=== PATIENT | female | born 1960 | race Caucasian/White ===

== ENCOUNTER → 2016-09-23 | Outpatient (CLI) | payer BC ==
[~2016-09-23] MED LIST: CALTRATE PO; CHOL100040 PO; OMEP20CA9 PO
== END | disposition home or self-care (01) ==
LOC: C.LAB1850 10:39
PROVIDERS: ATTEND Internal Medicine Pulmonary Disease
DX: J45.909 Unspecified asthma, uncomplicated (principal)

== ENCOUNTER → 2017-01-04 | Outpatient (CLI) | payer BC ==
--- NOTE | 2017-01-05 15:28 | MAMMOGRAPHY REPORT ---
BILATERAL DIGITAL SCREENING MAMMOGRAM TOMOSYNTHESIS WITH CAD: 01/04/2017 CLINICAL HISTORY: Routine screening. Patient has no complaints. TECHNIQUE: Breast tomosynthesis in addition to standard 2D mammography was performed. Current study was also evaluated with a Computer Aided Detection (CAD) system. COMPARISON: Comparison is made to exams dated: 12/24/2015 mammogram, 12/21/2014 mammogram, 12/19/2013 m ammogram, 12/12/2012 mammogram, 12/03/2011 mammogram, and 11/27/2010 mammogram - [facility] enter. BREAST COMPOSITION: The tissue of both breasts is heterogeneously dense, which may obscure small ma sses. FINDINGS: The parenchymal pattern is similar to prior exams. No developing mass, architectural dis tortion or cluster of suspicious microcalcifications is seen in either breast. IMPRESSION: ACR BI-RADS CATEGORY 2: BENIGN There is no mammographic evidence of malignancy. A 1 year screening mammogram is recommended. The p atient will receive written notification of the results. Approximately 10% of breast cancers are not detected with mammography. A negative mammographic repor t should not delay biopsy if a clinically suggestive mass is present. Celia Murillo M.D. ay/:01/04/2017 22:42:27 Tobacco Buyer: Lyudmila Antoine, [facility] letter sent: Normal 1/2 BI-RADS Code: ACR BI-RADS Category 2: Benign
== END | disposition home or self-care (01) ==
LOC: C.MAMM 09:59
PROVIDERS: ATTEND Obstetrics & Gynecology
DX: Z12.31 Encounter for screening mammogram for malignant neoplasm of breast (principal)

== ENCOUNTER → 2017-02-04 | Outpatient (CLI) | payer BC | END | disposition home or self-care (01) | LOC: C.PAPS 14:29 | PROVIDERS: ATTEND Obstetrics & Gynecology | DX: Z01.419 Encounter for gynecological examination (general) (routine) without abnormal findings (principal); N95.2 Postmenopausal atrophic vaginitis ==

== ENCOUNTER → 2018-01-05 | Outpatient (CLI) | payer OTHER ==
--- NOTE | 2018-01-05 15:30 | MAMMOGRAPHY REPORT ---
BILATERAL DIGITAL SCREENING MAMMOGRAM TOMOSYNTHESIS WITH CAD: 01/05/2018 CLINICAL HISTORY: Routine screening. Patient has no complaints. TECHNIQUE: Breast tomosynthesis in addition to standard 2D mammography was performed. Current study was also evaluated with a Computer Aided Detection (CAD) system. COMPARISON: Comparison is made to exams dated: 01/04/2017 mammogram, 12/24/2015 mammogram, 12/21/2014 m ammogram, 12/19/2013 mammogram, 12/12/2012 mammogram, and 12/03/2011 mammogram - [facility]. BREAST COMPOSITION: The tissue of both breasts is heterogeneously dense, which may obscure small mas ses. FINDINGS: No suspicious masses, calcifications, or areas of architectural distortion are noted in ei ther breast. There has been no significant interval change compared to prior exams. IMPRESSION: ACR BI-RADS CATEGORY 1: NEGATIVE There is no mammographic evidence of malignancy. A 1 year screening mammogram is recommended. The pa tient will receive written notification of the results. Approximately 10% of breast cancers are not detected with mammography. A negative mammographic report should not delay biopsy if a clinically suggestive mass is present. Salome Hutton M.D. ah/:01/05/2018 12:06:40 Rides Attendant: Chrissy Montiel RT(R)(M), [facility] letter sent: Normal 1/2 BI-RADS Code: ACR BI-RADS Category 1: Negative
== END | disposition home or self-care (01) ==
LOC: C.MAMM 10:12
PROVIDERS: ATTEND Obstetrics & Gynecology
DX: Z12.31 Encounter for screening mammogram for malignant neoplasm of breast (principal)

== ENCOUNTER 2019-05-24 05:31 | Inpatient (IN) ==
--- NOTE | 2019-04-28 09:29 | PAT Medication Instructions ---
Medication Instructions Date of Service April 28, 2019 Home Medications Women's Multivitamin 2 tab PO QAM acetaminophen 500 mg PO Q6H NEEDED calcium carbonate-vitamin D3 2 tab PO QAM cetirizine [Zyrtec] 10 mg PO QAM cholecalciferol (vitamin D3) [Vitamin D3] 1,000 unit PO QAM fluticasone propion-salmeterol [Advair Diskus] 1 puff INHALATION BID psyllium husk [Metamucil] 1 tbsp PO BID NEEDED ranitidine HCl 150 mg PO BID DO NOT take the morning of surgery Women's Multivitamin 2 tab PO QAM calcium carbonate-vitamin D3 2 tab PO QAM cetirizine [Zyrtec] 10 mg PO QAM cholecalciferol (vitamin D3) [Vitamin D3] 1,000 unit PO QAM psyllium husk [Metamucil] 1 tbsp PO BID NEEDED Take morning of surgery With a small sip of water, OTHERWISE NOTHING TO EAT OR DRINK AFTER MIDNIGHT: fluticasone propion-salmeterol [Advair Diskus] 1 puff INHALATION BID ranitidine HCl 150 mg PO BID acetaminophen 500 mg PO Q6H NEEDED (if needed; stop 4 hours prior to surgery) Take evening before surgery fluticasone propion-salmeterol [Advair Diskus] 1 puff INHALATION BID ranitidine HCl 150 mg PO BID psyllium husk [Metamucil] 1 tbsp PO BID NEEDED (if needed) acetaminophen 500 mg PO Q6H NEEDED (if needed) Other Notes If you have any questions please call us at [phone] or [phone] or [phone] or [phone]
--- NOTE | 2019-04-28 10:35 | Anesthesiology Consultation ---
Date of Service April 28, 2019 Assessment & Plan (1) Encounter for pre-operative examination: - No previous anesthesia records. Chart Review Chart Review: Acceptable Risk for Surgery and Patient seen in Pre Admission Testing Consults Requested medical (Dr. Tobias (05/09)) Patient was seen by PCPs office on 05/09/19 for preoperative evaluation. Per note from that visit, "Jailene is medically cleared for surgery." Teaching & Discussion Pre-Anesthesia Teaching/Discussion Notes: Instructed NPO after midnight before surgery, except medications with 15 cc of water. Medication instructions provided according to the PAT guidelines. History Surgery Operation Date: 05/24/19 09:10 Proposed Procedures p Left Total Knee Arthroplasty - Giovanny Navarro MD Height/Weight Height: 5 ft 6 in Weight: 62.5 kg Allergies Allergy/AdvReac Type Severity Reaction Status Date / Time procaine [From Novocain] Allergy Verified 05/02/19 08:55 codeine AdvReac Mild HEADACHES Unverified 04/21/19 10:46 Medications Home Medications Medication Instructions Recorded Confirmed Last Taken acetaminophen 500 mg PO Q6H PRN 04/21/19 04/21/19 Unknown calcium carbonate-vitamin D3 2 tab PO QAM 04/21/19 04/21/19 Unknown cetirizine [Zyrtec] 10 mg PO QAM 04/21/19 04/21/19 Unknown cholecalciferol (vitamin D3) 1,000 unit PO QAM 04/21/19 04/21/19 Unknown [Vitamin D3] psyllium husk [Metamucil] 1 tbsp PO BID PRN 04/21/19 04/21/19 Unknown ranitidine HCl 150 mg PO BID 04/21/19 04/21/19 Unknown fluticasone 100 mcg-salmeterol 50 1 puff INHALATION BID #60 ea 05/02/19 Unknown mcg/dose blistr powdr for inhalation Past Medical History Medical History Agoraphobia Allergy-induced asthma Environmental allergies GERD (gastroesophageal reflux disease) Osteoarthritis Seasonal allergies Exercise / Class Metabolic Activity II 4-5 Yardwork/Stairs/Walk up hill (Walks 2-5 miles daily. Able to climb FOS. Denies CP or SOB (now that asthma is being treated).) Past Family History Family History Sister Family history of diabetes mellitus FHx: uterine cancer Mother FHx: uterine cancer Family history of diabetes mellitus Father Emphysema, unspecified Brother Allergic rhinitis Past Surgical History Surgical History H/O arthroscopic knee surgery H/O breast biopsy H/O wrist surgery History of lumpectomy of left breast History of open reduction and internal fixation (ORIF) procedure LEFT WRIST History of repair of anterior cruciate ligament of left knee History of surgical removal of ganglion cyst LEFT Hx of cholecystectomy Past Anesthesia History No Hx of Anesthesia Complications and No Family Hx of Anesthesia Complications History of PONV No Hx of PONV and No Hx of Motion Sickness Social History Smoking Status: Former smoker Smoking cigarettes per day: 1 pack per week x 10-15 years Do You Dip or Chew Tobacco: No Smoking End Date: 27 YR AGO Hx Alcohol Use: Yes Alcohol type: hard liquor alcohol intake frequency: a few times a month Hx Substance Use: No Review of Systems Patient denies chest pain, shortness of breath, dyspnea on exertion, cough, palpitations. +Joint Pain (Knee, right Hip) +Acid Reflux (controlled with diet and current medications) +wheezing (resolved since starting on asthma medications) Physical Exam Vital Signs BP: 96/67 P: 74 R: 16 T: 98.4 SPO2: 99% on RA ENMT Thyromental Distance: > or= 3.5 Finger Breadths (3.5) Mallampati Class: II Neck normal visual inspection; neck extension not limited Respiratory normal respiratory effort Auscultation: lungs clear to auscultation bilaterally Cardiovascular Rate/Rhythm: regular rate and regular rhythm Heart Sounds: no murmur Vessels: no carotid bruit Neurologic moves all extremities Psychiatric Orientation: alert and oriented x 3 Testing Laboratory Results 04/28/19 11:04 04/28/19 11:04 PT 9.9 Seconds (9.0-12.0) 04/28/19 11:04 INR 1.0 (0.9-1.1) 04/28/19 11:04 APTT 26.1 Seconds (21.0-31.0) 04/28/19 11:04 Hemoglobin A1c 5.2 % (4.5-5.6) 04/28/19 11:04 Urine Color Yellow 04/28/19 Unknown Urine Appearance Clear (Clear) 04/28/19 Unknown Urine pH 5.0 (4.5-7.5) 04/28/19 Unknown Ur Specific [place]sgood 1.018 (1.000-1.030) 04/28/19 Unknown Urine Protein Negative (Negative) 04/28/19 Unknown Urine Glucose (UA) Negative (Negative) 04/28/19 Unknown Urine Ketones Negative (Negative) 04/28/19 Unknown Urine Nitrite Negative (Negative) 04/28/19 Unknown Ur Leukocyte Esterase Negative (Negative) 04/28/19 Unknown Blood Type A Positive 04/28/19 11:04 Antibody Screen NEGATIVE 04/28/19 11:04 Electrocardiogram Date: 04/28/19 Findings: + NSR @ (71) and + no change from (12/31/14) Chest X-Ray Date: 04/28/19 Findings: + NAD Stress Test Date: 06/12/16 Type: exercise Resting EF: 60% Resting RWMA: + none No ischemic ST/T wave changes with exercise Occasional PVCs Negative exercise ECG for ischemia Negative stress EKG for ischemia at 102% MPHR Well above average exercise tolerance for age and gender, 181% of predicted, achieving 13 METs.
--- NOTE | 2019-04-28 11:43 | XRay Report ---
XR chest Pre-admission PA/Lat HISTORY: Preop. COMPARISON: Chest 07/16/2017. FINDINGS: The lungs remain mildly hyperexpanded. No focal lung consolidations. No evidence for pulmon rafita edema. The heart is normal in size. No pleural effusions. No pneumothorax. Prior cholecystectomy. IMPRESSION: No acute process. Electronically signed by: Cresencio Garza M.D. 04/28/2019 11:41 AM
[2019-04-28 12:05] LABS: Basophils # (auto) 0.04 K/uL (0-0.2); Basophils % (auto) 0.8 %; Eosinophils # (auto) 0.08 K/uL (0-0.5); Eosinophils % (auto) 1.7 %; Immature Granulocytes # (auto) 0.01 K/uL (0.00-0.02); Immature Granulocytes % (auto) 0.2 %; Lymphocytes # (auto) 1.34 K/uL (1.2-3.4); Lymphocytes % (auto) 28.1 %; Mean Corpuscular Hemoglobin 33.2 pg (25-34); Mean Corpuscular Hgb Conc 35.1 g/dL (32-36); Mean Corpuscular Volume 94.4 fL (80-100); Mean Platelet Volume 9.2 fL (7.4-10.4); Monocytes # (auto) 0.33 K/uL (0.11-0.59); Monocytes % (auto) 6.9 %; Neutrophils # (auto) 2.97 K/uL (1.4-6.5); Neutrophils % (auto) 62.3 %; Platelet Count 208 K/uL (130-400); RDW Coefficient of Variation 13.6 % (11.5-14.5); RDW Standard Deviation 46.5 fL (36.4-46.3); Red Blood Count 3.92 M/uL (4.2-5.4); White Blood Count 4.77 K/uL (4.8-10.8)
[2019-04-28 12:07] LABS: Appearance Urine Clear (Clear); Bilirubin Urine Negative (Negative); Blood Urine Negative (Negative); Color Urine Yellow; Glucose Urine UA Negative (Negative); Ketones Urine Negative (Negative); Leukocyte Esterase Urine Negative (Negative); Nitrite Urine Negative (Negative); Protein Urine Negative (Negative); Specific Gravity Urine 1.018 (1.000-1.030); Urobilinogen Urine Negative (Negative)
[2019-04-28 12:12] LABS: Albumin Level 3.8 gm/dl (3.4-5.0); BUN Creatinine Ratio 27.6 (10-20); Calcium 9.1 mg/dl (8.5-10.1); Creatinine Clr Calc Pharmacy 92.2 ml/min; Est GFR (Non-African American) 98.4; Potassium 3.8 mmol/L (3.5-5.1)
[2019-04-28 12:16] LABS: Partial Thromboplastin Time 26.1 Seconds (21.0-31.0); Prothrombin Time 9.9 Seconds (9.0-12.0)
[2019-04-28 12:39] LABS: Estimated Average Glucose 103 mg/dl; Hemoglobin A1C 5.2 % (4.5-5.6)
--- NOTE | 2019-05-23 13:20 | History and Physical Report ---
DATE OF ADMISSION: 05/24/2019 CHIEF COMPLAINT: Chronic left knee pain. HISTORY OF PRESENT ILLNESS: This is a 59-year-old female patient of Dr. Montalvo, complaining of chronic left knee pain, longstanding, now progressively getting worse. The patient has failed conservative treatment including anti-inflammatories and the use of a brace. The patient has been diagnosed with end-stage osteoarthritis per clinical and radiographic exams. The patient has increased pain with weightbearing activities and her pain does interfere with her activities of daily living. PAST MEDICAL HISTORY: Asthma, acid reflux. SOCIAL HISTORY: Nonsmoker, nondrinker. PAST SURGICAL HISTORY: ACL replacement, wrist surgery, lumpectomy and left wrist cyst removal. FAMILY HISTORY: Noncontributory. REVIEW OF SYSTEMS: Chronic left knee pain, otherwise denies any shortness of breath, chest pain, nausea, vomiting or any other joint complaints. MEDICATIONS: 1. Advair Diskus 100 mcg/50 mcg dose, 1 puff twice daily 12 hours apart. 2. Zyrtec 10 mg daily. 3. Vitamin D3 1000 units daily. 4. Calcium 500 daily. 5. Multivitamin daily. 6. Ranitidine 150 mg 1 tablet twice daily. 7. Metamucil 0.52 g capsule daily. 8. Extra-Strength Tylenol as needed. 9. Advil Cold and Sinus 30/200 as needed. ALLERGIES: INCLUDE NOVOCAIN. PHYSICAL EXAMINATION: GENERAL: A well-developed, well-nourished 59-year-old female in no acute distress. She is alert and oriented x3 and pleasant. HEENT: Normocephalic, atraumatic. Extraocular motions are intact. Pupils are equal and reactive to light. HEART: Regular rate and rhythm, no murmurs. LUNGS: Clear. ABDOMEN: Soft, nontender, bowel sounds present. EXTREMITIES: Left knee limited range of motion of 0-115 degrees. Neutral alignment, 5/5 strength. Positive mild effusion. NEUROLOGIC: Neurovascularly intact in her left lower extremity. DIAGNOSES: Left knee end-stage osteoarthritis, asthma, acid reflux. PLAN: The patient was advised of her diagnosis. Indications, risks, benefits, and postop course have all been reviewed. The patient wished to proceed with a left total knee arthroplasty. Necessary consent forms, preoperative testing and clearances will be obtained. NIC
[2019-05-24] MEDS ORDERED: LR 500ML BOLUS, THEN 15ML/HR IV SCH (06:00)
[2019-05-24] MEDS ORDERED: dexAMETHasone 4 MG TAB PO SCH (06:00)
[2019-05-24] MEDS ORDERED: ROPIVACAINE 0.5% HCL/PF 150 MG, BUPIVACAINE 0.5% MPF 30 ML, EPINEPHrine 30MG/30ML (OR U... INSTIL SCH (06:00)
[2019-05-24] MEDS ORDERED: GABAPENTIN 600 MG DOSE PO SCH (06:00)
[2019-05-24] MEDS ORDERED: METOCLOPRAMIDE HCL 10 MG TABLET PO SCH (06:00)
[2019-05-24] MEDS ORDERED: CEFAZOLIN 1000MG 1,000 MG/7.5 ML SYR IV SCH (06:00)
[2019-05-24] MEDS ORDERED: ACETAMINOPHEN 500 MG TAB PO SCH (06:00)
[2019-05-24] MEDS ORDERED: FAMOTIDINE 20 MG TAB PO SCH (06:00)
[2019-05-24] MEDS ORDERED: TRANEXAMIC ACID 1,000 MG **IV Pre-op IV SCH (06:00)
[2019-05-24] MEDS ORDERED: CeleBREX 200 MG CAP PO SCH (06:00)
[2019-05-24] MEDS ORDERED: MIDAZOLAM HCL 1 MG/ML 2ML VIAL ONE (06:23)
[2019-05-24] MEDS ORDERED: fentaNYL citrate 100 MCG/2 ML VIAL ONE (06:23)
[2019-05-24] MEDS ORDERED: ROPIVACAINE 0.5% 5 MG/ML 30 ML VIAL ONE (06:25)
[2019-05-24] MEDS ORDERED: BUPIVACAINE 0.5 % 5 MG/1 ML PF 10ML VIAL ONE (06:25)
[2019-05-24] MEDS ORDERED: ATROPINE SULFATE 0.1 MG/ML 10ML SYR IV PRN (06:27)
[2019-05-24] MEDS ORDERED: fentaNYL citrate 100 MCG/2 ML VIAL IV PRN (06:27)
[2019-05-24] MEDS ORDERED: ONDANSETRON INJ 2 MG/ML 2 ML VIAL IV PRN ×2 (06:27→10:57)
[2019-05-24] MEDS ORDERED: ePHEDrine sulfate 50 MG/ML AMP IV PRN (06:27)
[2019-05-24] MEDS ORDERED: TRANEXAMIC ACID 1,000 MG **IV Intra-op IV SCH (06:30)
[2019-05-24] MEDS ORDERED: BACITRACIN INJ 50,000 UNIT VIAL ONE (06:41)
[2019-05-24] MEDS ORDERED: ORTHO JOINT ANESTHETIC ONE (06:41)
--- NOTE | 2019-05-24 06:57 | History & Physical Bridge Note ---
Date of Service May 24, 2019 History & Physical Bridge Note I have examined the patient, reviewed the History & Physical and in the interval since the performance of the History & Physical I have noted the following changes of clinical significance: no changes noted
[2019-05-24] MEDS ORDERED: PROPOFOL IV EMULSION 10 MG/ML 20 ML VIAL IV ONE ×2 (07:47→08:39)
[2019-05-24] MEDS ORDERED: PHENYLEPHRINE HCL 10 MG/ML VIAL ONE (07:48)
--- NOTE | 2019-05-24 09:26 | Post Operative Brief Note ---
Immediate Post Op Note v1 Date of Surgery May 24, 2019 Pre & Post Diagnosis Operation Date: 05/24/19 07:00 Pre-Op Diagnosis: Unilateral Primary Osteoarthritis, Left Knee, history of prior ACL reconstruction with retained hardware Post-Op Diagnosis: Unilateral Primary Osteoarthritis, Left Knee, history of prior ACL reconstruction with retained hardware Procedure Operation Date: 05/24/19 07:00 Actual Procedures p Left Total Knee Arthroplasty(Left) removal deep hardware lateral release patella- Giovanny Navarro MD Surgeon Giovanny Navarro MD Thermostat Machine Tender Emiliano LOGAN Estimated Blood Loss 5 Findings Consistent with Post-Op Diagnosis Specimens Bone cuts Drains Hemovac Drain Anesthesia Type MAC Spinal Regional Complications none Disposition Accompanied Patient To Recovery: No Disposition: Recovery Room Overlapping Procedure I was present for: the critical portions of procedure.
--- NOTE | 2019-05-24 10:13 | XRay Report ---
XR knee LT 2V routine CLINICAL HISTORY: post op LEft TKA COMPARISON: None. DISCUSSION: Anatomic alignment posttotal left knee arthroplasty. Screws are present within the distal femoral shaft and proximal tibial shaft. Expected soft tissue po stoperative change IMPRESSION: Anatomic alignment posttotal left knee arthroplasty. The above report was generated using voice recognition software. It may contain grammatical, syntax or spelling errors. Electronically signed by: Emiliano Pineda M.D. 05/24/2019 10:12 AM
--- NOTE | 2019-05-24 10:14 | Anesthesiology Progress Note ---
Date of Service May 24, 2019 Anesthesia Post Procedure Vital Signs Vital Signs: Temp Pulse Pulse Resp BP Pulse Ox 05/24/19 10:05 98.1 F 81 21 116/67 99 05/24/19 09:55 97.3 F L 73 18 114/71 100 05/24/19 09:45 97.3 F L 77 18 116/67 100 05/24/19 09:39 97.3 F L 75 14 111/61 100 05/24/19 06:11 98.2 F 64 16 114/68 100 Transfer of Care Handoff Completed per policy Notes Mental Status: alert / awake / arousable and participated in evaluation Patient Amnestic to Procedure: Yes Nausea / Vomiting: adequately controlled Pain: adequately controlled Airway Patency, RR, SpO2: stable & adequate BP & HR: stable & adequate Hydration State: stable & adequate Neuraxial Anesthesia: was administered and sensory block is resolving Anesthetic Complications: no major complications apparent and Pt Satisfied with anesthetic care
[2019-05-24] MEDS ORDERED: PSYLLIUM 58.6% POWDER PACKET PO PRN (10:57)
[2019-05-24] MEDS ORDERED: BISACODYL 10 MG SUPP PR PRN (10:57)
[2019-05-24] MEDS ORDERED: OXYCODONE HCL IR 5 MG TAB (IMMEDIATE RELEASE) PO PRN (10:57)
[2019-05-24] MEDS ORDERED: HYDROmorphone INJ 0.5 MG/0.5 ML SYR IV PRN (10:57)
[2019-05-24] MEDS ORDERED: NALOXONE HCL 0.4 MG/1 ML VIAL/CARP IV PRN (10:57)
[2019-05-24] MEDS ORDERED: MAGNESIUM HYDROXIDE SUSP 30 ML UDC PO PRN (10:57)
[2019-05-24] MEDS: ACETAMINOPHEN 500 MG TAB PO SCH ×2 (13:42→20:55)
[2019-05-24] MEDS: SODIUM CHLORIDE 0.9% 1000ML 1,000 ML IV SCH ×2 (13:54→20:38)
[2019-05-24] MEDS: CEFAZOLIN 1000MG 1,000 MG/7.5 ML SYR IV SCH ×2 (13:55→22:27)
[2019-05-24] MEDS ORDERED: ALBUTEROL HFA 8 GM INHALER INH PRN (17:54)
--- NOTE | 2019-05-24 17:56 | Hospitalist Consultation ---
Date of Consultation May 24, 2019 Assessment & Plan (1) S/P total knee arthroplasty: - S/p left TKA today, doing well. - Pain management per primary team. - ASA 81 mg BID for DVT ppx. - PT/OT for discharge planning. - Monitor CBC for acute blood loss. (2) Anxiety: - Now resolved; pt. reports anxiety was work related. (3) Asthma: - Continue home Advair; Albuterol prn. (4) Allergic rhinitis due to pollen: - Continue Flonase and Zyrtec. (5) GERD (gastroesophageal reflux disease): - Zantac BID. (6) Vitamin D deficiency: - Continue Vit D replacement. (7) DVT prophylaxis: - ASA 81 mg BID. Dispo: Pt. is medically stable, will sign off. Please call with any questions. Supervising Physician Co-Signing Physician Notes PA Supervision Note: I did not personally see or examine the patient today, but I verified all ayon points of DESMOND Trevino's assessment and plan with the following exceptions/additions: None History of Present Illness Reason for Consultation: Medical Management Attending Physician: Giovanny Navarro MD History of Present Illness Mrs. Lopez is a 59 year old female with past medical history of anxiety, GERD, vit D deficiency, allergic rhinitis, asthma who presented for a planned left TKA. She is doing well post op, denies chest pain, SOB, N/V, abd pain. Allergies Allergy/AdvReac Type Severity Reaction Status Date / Time codeine AdvReac Mild HEADACHES Verified 05/24/19 05:44 Home Medications Home Medications Medication Instructions Recorded Confirmed Type acetaminophen 500 mg PO Q6H PRN 04/21/19 05/24/19 History calcium carbonate-vitamin D3 2 tab PO QAM 04/21/19 05/24/19 History cetirizine [Zyrtec] 10 mg PO QAM 04/21/19 05/24/19 History cholecalciferol (vitamin D3) 1,000 unit PO QAM 04/21/19 05/24/19 History [Vitamin D3] psyllium husk [Metamucil] 1 tbsp PO BID PRN 04/21/19 05/24/19 History ranitidine HCl 150 mg PO BID 04/21/19 05/24/19 History fluticasone 100 mcg-salmeterol 50 1 puff INHALATION BID #60 ea 05/02/19 05/24/19 Rx mcg/dose blistr kathy for inhalation Patient History Medical History Agoraphobia Allergy-induced asthma Environmental allergies GERD (gastroesophageal reflux disease) Osteoarthritis Seasonal allergies Surgical History History of lumpectomy of left breast History of open reduction and internal fixation (ORIF) procedure LEFT WRIST History of repair of anterior cruciate ligament of left knee History of surgical removal of ganglion cyst LEFT Hx of cholecystectomy H/O arthroscopic knee surgery H/O breast biopsy H/O wrist surgery Family History Sister Family history of diabetes mellitus FHx: uterine cancer Mother FHx: uterine cancer Family history of diabetes mellitus Father Emphysema, unspecified Brother Allergic rhinitis Social History Preferred Language: Luxembourgish Communication Ability: Effective Beliefs That Will Affect Care: None Current Living Situation: Spouse Feels Safe at Home: Yes Smoking Status: Former smoker Cigarettes Per Day: 1 pack per week x 10-15 years ; Do You Dip or Chew Tobacco: No ; Smoking End Date: 27 YR AGO ; Second Hand Exposure: No ; Hx Alcohol Use: Yes Alcohol type: hard liquor Hx Substance Use: No Review of Systems Review of Systems: All systems reviewed & are unremarkable except as noted in HPI & below Constitutional: no fever, no chills, no fatigue and no weakness Respiratory: no cough, no dyspnea, no dyspnea on exertion and no wheezing Cardiovascular: no chest pain, no palpitations and no edema Gastrointestinal: no abdominal pain, no nausea, no vomiting, no constipation and no diarrhea/loose stools Genitourinary: no difficulty urinating Musculoskeletal: no back pain and no joint pain Integumentary: no non-healing lesions Physical Exam Physical Exam: General: Resting comfortably HEENT: NC/AT; PERRLA with EOMI; Matheny conjunctiva, MMM. No erythema of posterior pharynx Neck: Supple and nontender Cardiac: RRR Lungs: CTA bilaterally Abdomen: Bowel normoactive X 4; Nontender to palpation Extremities: Warm. No edema present. Dressing in place on LLE. Neuro: No focal weakness Skin: No rash Results & Data Vital Signs (Past 12 Hours) Vital Signs Temp Pulse Pulse Resp BP Pulse Ox 05/24/19 16:47 36.7 C 88 18 112/72 97 05/24/19 14:03 36.8 C 80 18 L 18 121/72 98 05/24/19 12:45 36.3 C L 84 18 119/76 97 05/24/19 11:47 36.8 C 84 18 120/72 96 05/24/19 11:10 37 C 81 14 120/74 98 05/24/19 10:40 36.8 C 79 18 113/80 98 05/24/19 10:25 36.4 C L 74 18 117/68 99 05/24/19 10:15 36.4 C L 87 24 122/89 100 05/24/19 10:05 36.7 C 81 21 116/67 99 05/24/19 09:55 36.3 C L 73 18 114/71 100 05/24/19 09:45 36.3 C L 77 18 116/67 100 05/24/19 09:39 36.3 C L 75 14 111/61 100 05/24/19 06:11 36.8 C 64 16 114/68 100 PG Care Time/CCT Total # of Minutes Spent Total Time Spent with Patient: Total time spent is greater than 50% in coordination of care (as documented) at patient's floor/unit and/or counseling patient:
--- NOTE | 2019-05-24 19:26 | Operative Report ---
Post Operative Report Pre & Post Diagnosis Operation Date: 05/24/19 07:00 Pre-Op Diagnosis: Unilateral Primary Osteoarthritis, Left Knee, history ACL reconstruction with failed ACL reconstruction Post-Op Diagnosis: Unilateral Primary Osteoarthritis, Left Knee, history ACL reconstruction with failed ACL reconstruction Procedure Operation Date: 05/24/19 07:00 Actual Procedures p Left Total Knee Arthroplasty(Left) removal interference screw hardware deep left tibia- Giovanny Navarro MD Surgeon Giovanny Navarro MD Document Control Assistant Emiliano LOGAN Estimated Blood Loss 5 Findings Consistent with Post-Op Diagnosis Specimens Screw, bone cuts Drains 2 Hemovac Anesthesia Type MAC Spinal Regional Complications None Disposition Accompanied Patient To Recovery: No Disposition: Recovery Room Indications 59-year-old female with progressive osteoarthritis and stability of left knee radiographs demonstrate interference screws from previous ACL reconstruction with pack of fixation with another tibial screw left lower extremity. She is a varus knees [id number] medial compartment. Clinically she is unstable. Description of Procedure Patient taken to the operating room placed supine on the operating table and anesthetized under spinal MAC regional anesthesia. Exam under anesthesia demonstrated 2+ pivot shift positive Shanna exam no endpoint varus knee tight medial compartment good range of motion. A pneumatic tourniquet was placed about the thigh of the left lower extremity. The left lower extremity was prepped and draped in usual fashion. Leg was elevated exsanguinated with an Esmarch bandage and the pneumatic was raised to 300 mm mercury. An anterior incision was made across the left knee. The skin was incised longitudinally slightly longer than typical due to requirement of removing the screw distal medial tibia. Attention was first taken to removing the interference screw. The back-up screw fixation was lower than the total knee implant and I left it in place in order not to cause a stress riser. There is sutures from that screw going toward the interference screw was but this was completely buried in bone as bone had overgrown the screw completely. I was able to follow the sutures and to wear the interference screw would be and used a small osteotome to remove the superficial bone to be saw the metal and then chipped around the screw with the small curved osteotome until we could place a screwdriver within the screw and remove it uneventfully. Subcutaneous flaps were elevated and an incision was made through the medial retinaculum extending up into the mid third of the quadriceps tendon and extended down to the medial tibial tubercle. Intra- articular findings demonstrated [id number] medial compartment failed ACL graft with absent graft. Some tricompartmental osteoarthritis. The knee was exposed by excising the infrapatellar fat pad, excising the meniscal remnants and posterior cruciate ligament. Any inflamed synovial tissue was resected. The fat pad over the anterior femur was resected for placement of the component in that area. The lateral synovial bands were release. Appropriate releases were performed to balance ligaments. On the medial side this required a medial posterior medial release and pie crusting MCL to get balance flexion extension gaps. The femur was exposed. The femoral sizing guide was placed and the femur was sized for an 8 narrow. The intramedullary guidewire was placed and distal femoral cutting block was applied. Standard distal femoral cut was made at 5 degrees valgus. The distal femoral cut was made with the oscillating saw. The size 8 4-in-1 cutting block was placed. The anterior and posterior chamfer cuts were made. The knee was extended and a subperiosteal peel lateral release was performed around the patella. The patella width was measured and width was reproduced using freehand cut technique. The 35 x 9 millimeter symmetrical patella was used. 3 drill holes are made for the pegs. The tibia was exposed. A an external tibial cutting guide was positioned and pinned in position. the proximal cut was made with the oscillating saw. All osteophytes were resected. The lamina forest patrolman was used to assess ligamentous balance and the ligaments were balanced in extension and flexion. The tibia was reexposed and measured for a size E tibial component. This was externally rotated in line with the tibial tubercle and the fixation pins were drilled. The proximal tibia was fashioned with the drill and punch. The size 8 CR femoral trial was inserted. The trial MC inserts were used. The 12 mm MC insert gave balanced ligaments through full range of motion. The patella tracked slightly laterally so a lateral release was performed and the patella tracked centrally. the trials were removed. The orthomix anesthetic cocktail was injected per protocol. The knee was then copiously irrigated with pulsatile lavage antibiotic solution with bacitracin. The final components were cemented with Simplex cement. The final components were [employer] persona CR left size 8 narrow femur, E tibia, 12 mm MC polyethylene and 35 x 9 mm symmetrical patella. While the cement cured with the knee in full extension the Betadine soak was used per protocol. After the cement cured, the knee joint was copiously irrigated with antibiotic solution with bacitracin. 2 drains were brought out laterally and connected to a Hemovac. The quadriceps tendon and medial retinaculum were closed with interrupted [id number] #1 Vicryl sutures. The knee was taken through a full range of motion and repair was secure. The subcutaneous tissues were closed with 2-0 Vicryl sutures and skin was closed with dar. Sterile dressings were applied and the patient tolerated the procedure well. Emiliano LOGAN my physician hearing aid assistant, assisted in soft tissue retraction instrument management leg positioning the closure and will participate in the postoperative care of the patient. I attest to the content of the Intraoperative Record and any orders documented therein. Any exceptions are noted below.
[2019-05-24] MEDS: DOCUSATE SODIUM 100 MG CAP PO SCH (20:54)
[2019-05-24] MEDS: FLUTICASONE/SALMETEROL 100/50 (ADVAIR) 14 PUFF/1 INHALER INH SCH (20:54)
[2019-05-24] MEDS: CeleBREX 200 MG CAP PO SCH (20:54)
[2019-05-24] MEDS: SENNA 8.6 MG TAB PO SCH (20:54)
[2019-05-24] MEDS: ASPIRIN 81 MG ECTAB PO SCH (20:55)
[2019-05-25] MEDS: ACETAMINOPHEN 500 MG TAB PO SCH ×3 (05:42→19:58)
[2019-05-25] MEDS: FLUTICASONE/SALMETEROL 100/50 (ADVAIR) 14 PUFF/1 INHALER INH SCH ×2 (05:49→19:55)
[2019-05-25 06:42] LABS: Hematocrit (blood only) 34.1 % (37-47); Hemoglobin 11.3 g/dL (12.0-16.0); Mean Corpuscular Hemoglobin 31.7 pg (25-34); Mean Corpuscular Hgb Conc 33.1 g/dL (32-36); Mean Corpuscular Volume 95.5 fL (80-100); Mean Platelet Volume 9.1 fL (7.4-10.4); Platelet Count 248 K/uL (130-400); RDW Coefficient of Variation 13.4 % (11.5-14.5); RDW Standard Deviation 46.5 fL (36.4-46.3); Red Blood Count 3.57 M/uL (4.2-5.4); White Blood Count 14.59 K/uL (4.8-10.8)
[2019-05-25 07:14] LABS: BUN Creatinine Ratio 20.1 (10-20); Calcium 8.7 mg/dl (8.5-10.1); Creatinine Clr Calc Pharmacy 68.3 ml/min; Est GFR (African American) 90.9; Est GFR (Non-African American) 78.4
[2019-05-25] MEDS: CHOLECALCIFEROL 1,000 UNITS TAB PO SCH (07:29)
[2019-05-25] MEDS: CALCIUM 600MG + VIT D 400 IU TAB PO SCH (07:29)
[2019-05-25] MEDS: CeleBREX 200 MG CAP PO SCH ×2 (07:29→19:59)
[2019-05-25] MEDS: CETIRIZINE HCL 10 MG TABLET PO SCH (07:29)
[2019-05-25] MEDS: DOCUSATE SODIUM 100 MG CAP PO SCH ×2 (07:29→19:59)
[2019-05-25] MEDS: MULTIVITAMIN TAB PO SCH (07:29)
--- NOTE | 2019-05-25 08:22 | Anesthesiology Progress Note ---
Date of Service May 25, 2019 Anesthesia Post Procedure Vital Signs Vital Signs: Temp Pulse Pulse Pulse Resp BP Pulse Ox 05/25/19 07:13 36.7 C 74 16 106/58 L 99 05/25/19 03:40 37.0 C 69 16 96/60 L 97 05/24/19 23:55 36.8 C 68 16 99/62 L 97 05/24/19 20:29 36.7 C 81 18 105/69 95 05/24/19 16:47 36.7 C 88 18 112/72 97 05/24/19 14:03 36.8 C 80 18 L 18 121/72 98 05/24/19 12:45 36.3 C L 84 18 119/76 97 05/24/19 11:47 36.8 C 84 18 120/72 96 05/24/19 11:10 37 C 81 14 120/74 98 05/24/19 10:40 36.8 C 79 18 113/80 98 05/24/19 10:25 36.4 C L 74 18 117/68 99 05/24/19 10:15 36.4 C L 87 24 122/89 100 05/24/19 10:05 36.7 C 81 21 116/67 99 05/24/19 09:55 36.3 C L 73 18 114/71 100 05/24/19 09:45 36.3 C L 77 18 116/67 100 05/24/19 09:39 36.3 C L 75 14 111/61 100 Notes Mental Status: alert / awake / arousable and participated in evaluation Nausea / Vomiting: adequately controlled Pain: adequately controlled Airway Patency, RR, SpO2: stable & adequate BP & HR: stable & adequate Hydration State: stable & adequate
[2019-05-25] MEDS: ASPIRIN 81 MG ECTAB PO SCH ×2 (09:10→19:59)
--- NOTE | 2019-05-25 10:46 | Orthopedic Progress Note ---
Date of Service May 25, 2019 Assessment & Plan (1) S/P total knee arthroplasty: POD #1, Left TKA PT/ OT DVT proph- ASA D/C planning- Home w OPPT Appreciate medicine input. Subjective POD #1, Doing well. Denies SOB, CP, N/V. Pain controlled well. Physical Exam Physical Exam: Left knee dressing c/d/i, no drainage. Drain in tact. Toes/ ankle mobile. No calf tenderness. A&Ox3, N/V+. Results & Data Vital Signs (Past 12 Hours) Vital Signs Temp Pulse Resp BP Pulse Ox 05/25/19 07:13 36.7 C 74 16 106/58 L 99 05/25/19 03:40 37.0 C 69 16 96/60 L 97 05/24/19 23:55 36.8 C 68 16 99/62 L 97
[2019-05-25] MEDS: SENNA 8.6 MG TAB PO SCH (19:59)
[2019-05-26] MEDS: ACETAMINOPHEN 500 MG TAB PO SCH (05:23)
[2019-05-26] MEDS: FLUTICASONE/SALMETEROL 100/50 (ADVAIR) 14 PUFF/1 INHALER INH SCH (05:40)
[2019-05-26 05:43] LABS: Hematocrit (blood only) 28.3 % (37-47); Hemoglobin 9.6 g/dL (12.0-16.0); Mean Corpuscular Hemoglobin 32.8 pg (25-34); Mean Corpuscular Hgb Conc 33.9 g/dL (32-36); Mean Corpuscular Volume 96.6 fL (80-100); Platelet Count 179 K/uL (130-400); RDW Coefficient of Variation 13.8 % (11.5-14.5); Red Blood Count 2.93 M/uL (4.2-5.4); White Blood Count 8.54 K/uL (4.8-10.8)
[2019-05-26 06:12] LABS: BUN Creatinine Ratio 25.2 (10-20); Calcium 8.6 mg/dl (8.5-10.1); Creatinine Clr Calc Pharmacy 76.8 ml/min; Est GFR (African American) 104.8; Est GFR (Non-African American) 90.4; Potassium 4.1 mmol/L (3.5-5.1)
--- NOTE | 2019-05-26 08:32 | Orthopedic Progress Note ---
Date of Service May 26, 2019 Assessment & Plan (1) S/P total knee arthroplasty: POD #2, Left TKA PT/ OT DVT proph- ASA D/C planning- Home w OPPT today Appreciate medicine input. Subjective POD #2, Doing well. Denies SOB, CP, N/V. Pain controlled well. Physical Exam Physical Exam: Left knee silverlon c/d/i, no drainage. Toes/ ankle mobile. No calf tenderness. A&Ox3. Results & Data Vital Signs (Past 12 Hours) Vital Signs Temp Pulse Resp BP Pulse Ox 05/26/19 08:23 110/68 05/26/19 08:19 36.7 C 85 18 85/53 L 99 05/26/19 00:20 36.5 C 78 16 110/66 97
[2019-05-26] MEDS: CeleBREX 200 MG CAP PO SCH (09:05)
[2019-05-26] MEDS: ASPIRIN 81 MG ECTAB PO SCH (09:06)
[2019-05-26] MEDS: CETIRIZINE HCL 10 MG TABLET PO SCH (09:06)
[2019-05-26] MEDS: DOCUSATE SODIUM 100 MG CAP PO SCH (09:07)
[2019-05-26] MEDS: MULTIVITAMIN TAB PO SCH (09:07)
[2019-05-26] MEDS: CHOLECALCIFEROL 1,000 UNITS TAB PO SCH (09:07)
[2019-05-26] MEDS: CALCIUM 600MG + VIT D 400 IU TAB PO SCH (09:07)
--- NOTE | 2019-06-03 01:44 | Discharge Summary ---
HISTORY OF PRESENT ILLNESS: This is a 59-year-old female patient of Dr. Navarro'lori complaining of chronic left knee pain, longstanding, now progressively getting worse. The patient was diagnosed with end-stage osteoarthritis per clinical and radiographic examinations. She wished to proceed with a left total knee arthroplasty. PAST MEDICAL HISTORY: Significant for asthma and acid reflux. POSTOPERATIVE COURSE: The patient underwent a left total knee arthroplasty on 05/24/2019. She was followed closely with physical therapy, medical consultation, deep venous thrombosis prophylaxis in the form of aspirin and pain control. The patient did very well postoperatively and was discharged home on postoperative day #2 with no hospital issues. PHYSICAL EXAMINATION: On discharge, left knee Silverlon dressing was clean, dry and intact. There was no redness or drainage. She had no calf tenderness. Negative Homans sign. Toes and ankle were mobile. She was ambulating well with a walker. Neurologically and vascularly she is intact in her left lower extremity. DIAGNOSES: Status post left total knee arthroplasty, asthma and acid reflux. PLAN: The patient was discharged home with outpatient physical therapy. She will continue aspirin twice daily for deep venous thrombosis prophylaxis. She will continue her preadmission medications with the addition of pain medications. The patient will follow up as an outpatient as scheduled.
== END 2019-05-26 11:27 | disposition home or self-care (01) | DRG 470 ==
LOC: ASU 05:31 → 3E 09:44